=== PATIENT | female | born 1955 ===

== ENCOUNTER 2020-11-13 10:00 | Outpatient (CLI) | payer OTHER | END 2020-11-13 10:02 | disposition home or self-care (01) | LOC: NUCLEAR 10:00 | PROVIDERS: ATTEND Internal Medicine Cardiovascular Disease | DX: I87.2 Venous insufficiency (chronic) (peripheral) (principal) ==

== ENCOUNTER 2020-11-19 14:33 | Outpatient (CLI) | payer OTHER | END 2020-11-19 14:34 | disposition home or self-care (01) | LOC: NUCLEAR 14:33 | PROVIDERS: ATTEND Internal Medicine Cardiovascular Disease | DX: I73.9 Peripheral vascular disease, unspecified (principal) ==

== ENCOUNTER 2020-12-10 09:15 | Outpatient (CLI) | payer OTHER | END 2020-12-10 09:20 | disposition home or self-care (01) | LOC: NUCLEAR 09:15 | PROVIDERS: ATTEND Internal Medicine Cardiovascular Disease | DX: M81.0 Age-related osteoporosis without current pathological fracture (principal); M19.91 Primary osteoarthritis, unspecified site; E55.9 Vitamin D deficiency, unspecified | CPT/HCPCS: 78315; A9503 ==